=== PATIENT | female | born 1930 | race Caucasian/White ===

== ENCOUNTER 2017-02-04 00:32 | Inpatient (IN) | payer OTHER ==
--- NOTE | ~2017-02-04 | HP ---
History And Physical [address] [place]. [address] NAME: DARIN COOK : 31 STATUS : ADM Anjali PAT#: [id number] AGE: 86 ADM/REG DATE : 02/04/17 MR#: [id number] REPORT SERV DATE: 02/04/17 DICTATED BY: RICARDA CELESTIN DATE: 02/04/17 REPORT STATUS : Draft TRANSCRIBED BY: MODL DATE: 02/04/17 DATE OF ADMISSION: 02/04/2017 CHIEF COMPLAINT: An 86-year-old female presenting with right-sided thoracic shingles and failure to thrive. HISTORY OF PRESENT ILLNESS: The patient's history was obtained through the interview with patient and two sons coupled with review of [facility] and [facility] medical records. The patient about nine days ago began to develop an odd discomfort under her right breast radiating around to her back. It has been in the last two days that she has developed an overt rash that seems to be consistent with shingles on a dermatome extending underneath her right breast all the way to her back at midline. It has been blistering by her own account and is about 8/10 severity discomfort at all times. It is in this context that the patient has had a decreased appetite and just "felt really really sick." On the night prior to admission, she had a fall because she was feeling dizzy, orthostatic. She has had nausea, but no vomiting. She has had subjective fevers and chills. In the last 24 hours, she has developed a headache that radiates into her right ear and her right yazdanism, an aching quality, 10/10 severity. She has no previous history of diabetes. REVIEW OF SYSTEMS: Otherwise, a 14-point review of systems was obtained and was negative. PAST MEDICAL HISTORY: 1. Restless legs syndrome. 2. Depression. 3. Obstructive sleep apnea, but noncompliant with CPAP. 4. Hypertension. 5. Atrial fibrillation. 6. Pancreatitis. 7. Hypothyroidism. 8. Gastroesophageal reflux disorder. 9. Colon polyps seen by Dr. Espinosa. PAST SURGICAL HISTORY: 1. Bilateral hip replacement. 2. Cholecystectomy. 3. Hysterectomy with oophorectomy. 4. Cystocele repair. History And Physical [address] [place]. [address] NAME: DARIN COOK : 31 STATUS : ADM Anjali PAT#: [id number] AGE: 86 ADM/REG DATE : 02/04/17 MR#: [id number] REPORT SERV DATE: 02/04/17 DICTATED BY: RICARDA CELESTIN DATE: 02/04/17 REPORT STATUS : Draft TRANSCRIBED BY: GUSTAVO DATE: 02/04/17 ALLERGIES: LORTAB. SOCIAL HISTORY: No tobacco abuse. No alcohol abuse. She is a . Lives in [place], [place]. Lives with son. FAMILY HISTORY: Heart disease, diabetes. CURRENT MEDICATIONS: Include Flexeril t.i.d., Prozac 20 mg p.o. daily, Lasix 10 mg as needed, Cozaar 100 mg p.o. daily, metoprolol-XL 50 mg p.o. daily, nabumetone 750 mg p.o. b.i.d., Mirapex mg p.o. at bedtime. PHYSICAL EXAMINATION: VITAL SIGNS: Temperature 97.9, pulse 87, blood pressure 125/73, respiratory rate 16, and O2 saturation 95% on room air. GENERAL: An ill-appearing female, describing distress from her pain related to headache and shingles. HEENT: Pupils equal, round, and reactive to light. No conjunctival pallor. No scleral icterus. Nares are patent. Oropharynx is clear of obstruction. Dry mucous membranes. The patient's right ear shows extensive amount of wax, but no blistering effect or other erythema or abnormality. NECK: Trachea midline. No thyromegaly. LYMPH: No cervical lymphadenopathy. No supraclavicular lymphadenopathy. RESPIRATORY: Clear to auscultation at bases. No wheezes, rales, or rhonchi. Normal respiratory effort. CARDIOVASCULAR: Regular rate and rhythm. No murmurs, rubs, or gallops. No extremity edema is appreciated. ABDOMEN: Soft, nontender, nondistended. Normal bowel sounds auscultated throughout. No hepatosplenomegaly. DERMATOLOGICAL: Warm and dry extremities. No pallor. No cyanosis. The patient has a typical appearing case of shingles extending on the dermatome linearly from under her right breast around to the back, but with no ulcerations. No purulent drainage. No heat. PSYCHIATRIC: Normal affect. Good mood. Alert and oriented x3. LABORATORY DATA: White blood cell count 7.9, hematocrit 48, platelets 212. Sodium 131, potassium 3.7, chloride 97, bicarb 27, BUN 12, creatinine 1.1, glucose 207. Urinalysis shows no evidence of infection, but 57 hyaline casts. INR 1.1. STUDIES: 1. EKG by my own evaluation shows sinus rhythm, premature ventricular contractions, left axis deviation, anterior septal infarct changes. 2. CT scan of the brain without contrast shows no acute intracranial process. ASSESSMENT AND PLAN: 1. Shingles. Place on IV narcotic pain management and started valacyclovir. Obtain a wound care consult to see if there is any way to relieve discomfort and to prevent secondary infection or complications. 2. Headache. Negative CT scan of the brain. Check ESR. History And Physical [address] [address] NAME: DRAIN COOK : 31 STATUS : ADM Anjali PAT#: [id number] AGE: 86 ADM/REG DATE : 02/04/17 MR#: [id number] REPORT SERV DATE: 02/04/17 DICTATED BY: RICARDA CELESTIN DATE: 02/04/17 REPORT STATUS : Draft TRANSCRIBED BY: GUSTAVO DATE: 02/04/17 3. Hyperglycemia. Check hemoglobin A1c. Place on sliding scale insulin. Obtain a nurse educator consult. 4. [address] on IV fluids. KPL/MODL Ricarda Celestin M.D. / [id number] CC: Chel Pryor M.D.
--- NOTE | ~2017-02-04 | EEG ---
Electroencephalogram [facility] [address] [place]. [address] NAME: DARIN COOK : 31 STATUS : ADM Anjali PAT#: [id number] AGE: 86 ADM/REG DATE : 02/04/17 MR#: [id number] REPORT SERV DATE: 02/06/17 DICTATED BY: MELY BACH DATE: 02/06/17 REPORT STATUS : Draft TRANSCRIBED BY: MODL DATE: 02/06/17 INTERPRETING PHYSICIAN: Mely Bach MD-Neurology. EEG NUMBER: [id number]. AGE: 86. REASON FOR EEG: Lethargy, altered mental status, meningitis. 23 surface electrodes, 10-20 international placement was used. The patient was noted to be awake, drowsy, and confused throughout the study. The patient kept her eyes open through most of the recording. The background activity consisted of very poorly organized 5-6 cycles per second, located in the posterior head regions. This activity did not appear to attenuate with the eye opening maneuvers. Eye blinking artifact was symmetrical. No paroxysmal or epileptiform activity was seen during this study. There was no significant asymmetry. The patient's registered public surveyor showed sinus rhythm of 72 beats per minute with intermittent PVCs followed by pauses of 0.5 seconds. IMPRESSION: ABNORMAL EEG CHARACTERIZED BY PRESENCE OF DIFFUSE SLOWING AND DISORGANIZATION OF CEREBRAL ACTIVITY. ABOVE PATTERN MAY REPRESENT PRESENCE OF DIFFUSE CEREBRAL DYSFUNCTION. HOWEVER, MAY ALSO BE SEEN IN A POSTICTAL STATE. CLINICAL CORRELATION IS RECOMMENDED. BRIGETTE/GUSTAVO Mely Bach MD / [id number] CC: Akash Rios M.D. Duy Wilson M.D.
--- NOTE | ~2017-02-04 | CN ---
Consultation Report [facility] [address] [place]. [address] NAME: DARIN COOK : 31 STATUS : ADM IN PAT#: [id number] AGE: 86 ADM/REG DATE : 02/04/17 MR#: [id number] REPORT SERV DATE: 02/08/17 DICTATED BY: JUANIS AMAYA DATE: 02/08/17 REPORT STATUS : Draft TRANSCRIBED BY: MODL DATE: 02/08/17 INFECTIOUS DISEASE CONSULTATION DATE OF CONSULTATION: 02/08/2017 REASON FOR CONSULTATION: Zoster with meningitis. HISTORY OF PRESENT ILLNESS: This is an 86-year-old female with a past medical history notable for hypertension, obstructive sleep apnea, depression, restless legs syndrome, hypothyroidism, and gastroesophageal reflux. She was admitted to the hospital on February 04 with Zoster involving her right chest wall but also symptoms of dizziness, falls, and headache. She underwent a CT scan of the brain without IV contrast without any significant findings. She underwent a lumbar puncture which showed 34 white blood cells, all mononuclear and protein of 114. She developed some worsening mental status changes and it was elected to start her on IV acyclovir. She also was given Valtrex and received both drugs from February 04 through the morning of February 06. The patient had some worsening initially of her mental status and was seen by Neurology. EEG showed no signs of seizures. She then started improving again over the past couple of days and now is markedly improved. She denies any more headache. She denies significant pain in the area of the Zoster on the right chest wall. PAST MEDICAL HISTORY: As outlined above, otherwise, notable for bilateral hip replacements; cholecystectomy; hysterectomy with oophorectomy; and cystocele repair. ALLERGIES: HYDROCODONE AND LORTAB. PRESENT MEDICATIONS: In addition to IV acyclovir include Lovenox; Prozac; Neurontin; insulin sliding scale; Cozaar; and Toprol-XL. SOCIAL HISTORY: She lives with her son who is here in the room with her. Nonsmoker. Nondrinker. . FAMILY HISTORY: Noncontributory. REVIEW OF SYSTEMS: Otherwise negative. No nausea, vomiting, diarrhea, chest pain, or shortness of breath. PHYSICAL EXAMINATION: VITAL SIGNS: The patient weighs 93 kg. She is afebrile. Blood pressure 147/91, pulse 70, and respiratory rate 16. GENERAL: She is alert, pleasant, conversational, appropriate. HEENT: Head and neck exam, extraocular movements intact. The oral cavity is clear. NECK: Neck is supple. No adenopathy. No meningismus. LUNGS: Clear to auscultation anteriorly. Cardiac: Exam regular rate and rhythm without Consultation Report [facility] [address] [place] [address] NAME: DARIN COOK : 31 STATUS : ADM IN PAT#: [id number] AGE: 86 ADM/REG DATE : 02/04/17 MR#: [id number] REPORT SERV DATE: 02/08/17 DICTATED BY: JUANIS AMAYA DATE: 02/08/17 REPORT STATUS : Draft TRANSCRIBED BY: GUSTAVO DATE: 02/08/17 murmur, gallop, or rub. ABDOMEN: Soft and nontender. Bowel sounds are present. EXTREMITIES: No significant rash or edema. She has a peripheral IV without phlebitis. CHEST: Exam shows a typical dermatomal Zoster, a rash. There are a few shallow ulcerations most of this now appears to be healing. LABORATORY STUDIES: White blood cell count on February 05 7.0, hemoglobin 14.0, platelets 190, creatinine 1.41, repeat creatinine today is down to 0.91. Admission liver function tests showed a bilirubin of 1.3, otherwise normal. Albumin was 4.4. Admission urinalysis trace leukocyte esterase, 30 mg/dL of protein. Lumbar puncture as noted. IMPRESSION: This patient has dermatomal zoster accompanied by a component of meningitis. She may have had an element of meningeal encephalitis. However the patient's worsening mental status after being started on the acyclovir could have been due to a number of factors. She did have some pain medication. She was sleeping poorly and she could have had some mild neurotoxicity from the concomitant Valtrex and IV acyclovir. I do not believe she had a severe zoster encephalitis here. PLAN: We will change the antiviral therapy back to oral Valtrex tomorrow for 5 more days of therapy. MARTHA/GUSTAVO Juanis Amaya M.D. / [id number] CC: Chel Pryor M.D.
--- NOTE | ~2017-02-04 | CN ---
Consultation Report [facility] [address] [place]. [address] NAME: DARIN COOK : 31 STATUS : ADM Anjali PAT#: [id number] AGE: 86 ADM/REG DATE : 02/04/17 MR#: [id number] REPORT SERV DATE: 02/05/17 DICTATED BY: MELY BACH DATE: 02/05/17 REPORT STATUS : Draft TRANSCRIBED BY: MODL DATE: 02/05/17 NEUROLOGICAL EVALUATION-CONSULTATION DATE OF CONSULTATION: 02/05/2017 HISTORY OF PRESENT ILLNESS: This is an 86-year-old white female who was admitted on 02/04/2017 with altered mental status, encephalopathy. The patient was not able to provide history. History was obtained from the patient's medical records, which was obtained from the patient's son. The patient developed shingles eruption under her right breast approximately seven days ago prior to admission. At that time, the patient had pain in her right chest area, radiating to her neck. The patient was not able to function well, had decreased appetite and decreased p.o. liquid intake. The night prior to admission, she had fallen because she was feeling dizzy, she struck her head. Apparently, the patient had nausea but no vomiting. There was no report of fever, chills, nausea, or vomiting. The day prior to admission, the patient developed a headache, which radiated to the right ear and her right catholic, which was described as severe. PAST MEDICAL HISTORY: Significant for history of hypertension; atrial fibrillation; pancreatitis; hypothyroidism; obstructive sleep apnea, noncompliant with CPAP; depression; restless legs syndrome; colon polyp; GI reflux; and hypothyroidism. PAST SURGICAL HISTORY: Includes hysterectomy, cholecystectomy, bilateral hip replacement, and cystocele repair. SOCIAL HISTORY: There is no history of smoking or alcohol use. She lives with her son. FAMILY HISTORY: Significant for history of diabetes and heart disease. MEDICATIONS: Prior to admission included Cozaar 100 mg daily, metoprolol 50 mg daily, Lasix 10 mg a day, Flexeril 10 mg t.i.d., nabumetone 750 mg p.o. b.i.d., and Mirapex unknown dose. The patient had undergone lumbar puncture to rule out meningitis. The patient's CSF showed 34 Wbc's, 188 Rbc's, 37 lymphocytes, 63 monos, protein was 114.2, and glucose was 91. Her peripheral glucose was 116. Peripheral CBC showed WBC count of 7, hemoglobin and hematocrit were 14/40, and platelet count 140,000, with a normal differential. This morning, the patient was difficult to arouse. Last night, the patient was given Dilaudid for complaints of headache and chest pain secondary to her shingles. The patient was difficult to arouse today and neurological examination was requested. The patient appeared arousable, however, did not follow commands. PHYSICAL EXAMINATION: GENERAL: Showed blood pressure of 140/65, pulse was 85 and regular, respirations 20, and Consultation Report [address] [place]. [address] NAME: DARIN COOK : 31 STATUS : ADM Anjali PAT#: [id number] AGE: 86 ADM/REG DATE : 02/04/17 MR#: [id number] REPORT SERV DATE: 02/05/17 DICTATED BY: MELY BACH DATE: 02/05/17 REPORT STATUS : Draft TRANSCRIBED BY: GUSTAVO DATE: 02/05/17 temperature was 97.8. HEAD AND NECK: Showed no evidence of trauma. Auscultation of the neck showed no evidence of bruits. Thyroid gland was nonpalpable. There was no cervical lymphadenopathy. No herpetic eruption was noted around the ears, mouth, or neck area, but the patient had subacute lesions under her right breast in the proximal T6 dermatome on the right. ABDOMEN: Soft, nontender. There was no organomegaly. Bowel sounds are present. EXTREMITIES: Show no clubbing or cyanosis. There was no peripheral edema. Peripheral pulses were normal. Skin was dry. Mucous membranes dry. NEUROLOGICAL: The patient was alert but did not follow commands. Appeared to fall asleep readily. Her speech was dysarthric. There was no evidence of aphasia. Cranial nerve examination 2 through 12 appeared to be nonfocal. No abnormalities detected; however, visual carvalho were difficult to test secondary to the patient's confusion. Motor exam showed no deficit. The patient moved her extremities symmetrically and no deficits were noted. Sensory exam: The patient withdrew to pain symmetrically. Cerebellar exam could not be tested. The patient, however, did not display truncal ataxia or nystagmus on exam. Gait could not be tested. DATA: EEG was monitored at the patient's bedside. It showed no evidence of seizure activity, diffusely slow background was noted. Possible encephalopathy versus postictal state. CT scan of the head showed no evidence of acute abnormality. Moderate amount of ischemic changes in deep white matter was present, and mild atrophy was observed. No subdural or epidural fluid collection was noted; however, the patient did have prominent frontal atrophy. IMPRESSION: Recent changes in neurological status and mental status-encephalopathy with signs of mild viral meningitis, recent herpes zoster infection peripheral in the T6 dermatome. The patient had an episode of poor responsiveness, which may represent possible subclinical seizure. No focal motor deficits were noted on the examination; however, the patient's confusion is definitely a new finding for this patient. As per history, there is no suggestion of the patient having significant dementia or past history of strokes. Although unlikely herpes zoster meningitis, encephalitis can be considered. Although most described cases of herpes encephalitis are more severe including causing vasculitis and strokes, the patient's symptoms appeared mild. This may constitute a mild herpes zoster meningitis. We will await the patient's herpes zoster PCR on the cerebrospinal fluid. Would consider continuing acyclovir, monitoring the patient for fall precautions and injury, and avoid sedating medications or narcotic medications if possible. We will start Neurontin for postherpetic pain. Lyrica, although approved for this condition, would be too sedating for this patient. At present, no indication is seen to start anticonvulsant medications; however, if the patient has any evidence of clinical seizure, we would start the patient on Keppra 500 mg or 1000 mg IV q.12 hours. Monitor renal function. We will follow the patient with you. Thank you for allowing us to participate in this patient's care. RKA/JUWANL Consultation Report [place] [id number] [facility] [place]. [address] NAME: DARIN COOK : 31 STATUS : ADM Anjali PAT#: [id number] AGE: 86 ADM/REG DATE : 02/04/17 MR#: [id number] REPORT SERV DATE: 02/05/17 DICTATED BY: MELY BACH DATE: 02/05/17 REPORT STATUS : Draft TRANSCRIBED BY: GUSTAVO DATE: 02/05/17 Mely Bach MD / [id number] CC: Chel Pryor M.D.
--- NOTE | ~2017-02-04 | IDS ---
Interim Discharge Summary [facility] [address] [place]. [address] NAME: DARIN COOK : 31 STATUS : ADM IN [facility]#: [id number] AGE: 86 ADM/REG DATE : 02/04/17 MR#: [id number] REPORT SERV DATE: 02/08/17 DICTATED BY: ELODIA SENIOR DATE: 02/08/17 REPORT STATUS : Draft TRANSCRIBED BY: MODL DATE: 02/08/17 ADMISSION DATE: 02/04/2017 DISCHARGE DATE: DATE OF SUMMARY: 02/08/2017. 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 SECONDARY DIAGNOSES: 1. Encephalopathy with possible seizure and postictal state. 2. Hypertension. 3. Acute renal insufficiency due to hypovolemia. 4. Transient hyperglycemia. HISTORY OF PRESENT ILLNESS: Please see Dr. Burrows's dictation, 02/04/2017. HOSPITAL COURSE: Admitted with acute complaint of headache and shingles of five days' duration. Upon seeing her, however, I was concerned about the presence of meningismus. She was changed to intravenous acyclovir therapy and an LP was performed on 02/07/2017, which in fact was positive for lymphocytes and monocytes, but no neutrophils or high protein, but normal glucose consistent with aseptic meningitis. The patient actually had a deterioration level of consciousness during the first 36 hours of her hospitalization. There was actually an episode of comatose state. There was a concern about unwitnessed seizure, EEG showed diffuse slowing, no ictal spikes; however, the patient did gradually improve her cognition. In fact, by 02/07/2017, she was headache free and by 02/08/2017, she had normal mental status, normal p.o. intake. She remained on intravenous acyclovir. I consulted with Dr. Charlie Amaya regarding duration of intravenous acyclovir versus conversion to p.o. therapy, should also initiate physical therapy today with possible half-way facility if intravenous antivirals were required. We anticipated that she would be ready for discharge regardless within the next day or two. Dr. Avila will presume care of this patient tomorrow. BLACK/GUSTAVO Elodia Senior M.D. / [id number] CC: Chel Pryor M.D.
--- NOTE | ~2017-02-04 | DS ---
Discharge Summary [facility] [address] [place]. [address] NAME: DARIN COOK : 31 STATUS : DIS IN PAT#: [id number] AGE: 86 ADM/REG DATE : 02/04/17 MR#: [id number] REPORT SERV DATE: 02/11/17 DICTATED BY: FLOR DIEHL DATE: 02/10/17 REPORT STATUS : Draft TRANSCRIBED BY: MODL DATE: 02/10/17 ADMISSION DATE: 02/04/2017 DISCHARGE DATE: 02/10/2017 HOSPITAL COURSE: An 86-year-old very pleasant female with known history of hypertension, JUAN, depression, restless legs syndrome, hypothyroidism, and GERD. Came in with zoster right chest wall, dizziness, falls, headache. CT of the brain did not show any acute pathology. Had an LP given some meningismus signs, which only showed 34 white blood cells, all mononuclear; protein 114. She had worsening mental status changes. As a result, initially she was started on IV acyclovir, then was concomitantly given Valtrex from 02/04/2017 through 02/06/2017. The patient had worsening of mental status, was initially evaluated as well with Neurology with concern for possible seizure. An EEG did not show a seizure. When she was stopped on her acyclovir from 02/06/2017, she started to improve mentally speaking, known to have dermatomal zoster component of meningitis likely viral element of meningoencephalitis; however, the patient has worsen mental status after being started on acyclovir and concomitant Valtrex. Could be mild neurotoxicity from both medications. Dr. Amaya had evaluated her, did not believe she had any severe zoster encephalitis. p.o. b.i.d. through 02/14/2017. Also, avoid sedating medications and narcotics. She was started on Neurontin for postherpetic neuralgia. Lyrica was entertained, but was thought to have been too sedating as well as the Keppra that she was also on initially. The patient is amenable for discharge. DISCHARGE MEDICATIONS: To a facility will include Prozac 20 p.o. daily; gabapentin 300 p.o. t.i.d., we will try to reduce that down as an outpatient; losartan 100 p.o. daily; Toprol-XL 50 p.o. daily; Valtrex 1 g p.o. b.i.d. through 02/13/2017; Percocet 5/325 p.o. q.8 p.r.n. pain, we will try to reduce that down as an outpatient as well; Flexeril as well p.r.n., Flexeril will actually not be given, given potential sedating synergistic effect; Mirapex p.r.n. at night. FOLLOWUP: PCP in two weeks including possible maintenance acyclovir at that time. DISCHARGE DIAGNOSES: The patient does have diabetes. A1c is 7.4. As a result, I will place this patient on metformin 500 p.o. b.i.d. She needs to have weight loss therapy as well, as that may indeed reverse her diabetes. 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 DAVID, improved. Postherpetic neuralgia. See rest of my orders. All questions were answered. Took well over 30 minutes to do. CONSULT: Infectious Disease and Neurology. DICTATED BY: Flor Diehl DO WST/GUSTAVO Discharge Summary [address] [address] NAME: DARIN COOK : 31 STATUS : DIS IN PAT#: [id number] AGE: 86 ADM/REG DATE : 02/04/17 MR#: [id number] REPORT SERV DATE: 02/11/17 DICTATED BY: FLOR DIEHL DATE: 02/10/17 REPORT STATUS : Draft TRANSCRIBED BY: MODL DATE: 02/10/17 Flor Diehl DO / [id number] CC: DO Duy Ordonez M.D.
[~2017-02-04 00:32] MED LIST: AMIT100 PO; ASAB PO; DSS PO; EXFORGE; EXFORGE1 TA1 PO; FLEX PO; FLUID PILL; L20 PO; LIPITOR40 PO; MIRAPEX250 PO; PROZAC PO; PROZAC40 MG PO; STOOL SOFTEN100 MG PO; SYN125 PO; SYNTHROID137 MCG PO; TOPXL25 PO; TOPXL50 PO; XARELTO20 MG PO
[2017-02-04 01:57] LABS: BASOPHILS 0.3 %; BASOPHILS ABSOLUTE 0.02 10/3/uL (0.0-0.16); EOSINOPHILS 0.3 %; EOSINOPHILS ABSOLUTE 0.02 10/3/uL (0.0-0.53); ER CBC TAT 0 Hrs 03 Mins; HEMOGLOBIN 16.6 g/dL (12.0-16.0); IMMATURE GRANULOCYTES 0.3 %; IMMATURE GRANULOCYTES ABSOLUTE 0.02 10/3/uL (0.0-0.11); LYMPHOCYTES 20.8 %; LYMPHOCYTES ABSOLUTE 1.65 10/3/uL (0.67-4.30); MEAN CORPUS HGB CONC 34.8 g/dL (32.0-36.0); MEAN CORPUSCULAR HEMOGLOB 31.5 pg (26.0-34.0); MEAN CORPUSCULAR VOLUME 90.5 fL (80-100); MONOCYTES 13.4 %; MONOCYTES ABSOLUTE 1.06 10/3/uL (0.21-1.20); NEUTROPHILS 64.9 %; NEUTROPHILS ABSOLUTE 5.15 10/3/uL (2.02-8.40); PLATELET COUNT 212 10/3/uL (150-400); RED CELL COUNT 5.27 10/6/uL (4.0-5.6); WHITE BLOOD CELLS 7.9 10/3/uL (4.5-10.5)
[2017-02-04 01:58] LABS: HEMATOCRIT 47.7 % (36.0-48.0); MANUAL DIFF NO %
[2017-02-04 02:13] LABS: ALBUMIN 4.4 G/DL (3.5-5.0); CALCIUM, SERUM 9.8 MG/DL (8.5-10.4); CHLORIDE, SERUM 97 MMOL/L (96-112); CO2 (CARBON DIOXIDE) 27 MMOL/L (24-34); CREATININE 1.11 MG/DL (0.55-1.02); DIRECT BILIRUBIN 0.2 MG/DL (0.0-0.4); GFR AFRICAN AMERICAN 52 ML/MIN (>=60); GFR NON AFRICAN AMERICAN 45 ML/MIN (>=60); INDIRECT BILIRUBIN(NOT ORDER) 1.1 MG/DL (0.1-0.9); POTASSIUM, SERUM 3.7 MMOL/L (3.5-5.3); SGOT(AST) 26 U/L (5-40); SGPT(ALT) 26 U/L (5-65); TOTAL BILIRUBIN 1.3 MG/DL (0-1.2); TOTAL PROTEIN 8.4 G/DL (6.0-8.5)
[2017-02-04 02:22] LABS: A/G RATIO 1.1 (0.7-1.9); ALKALINE PHOSPHATASE 107 U/L (45-117); BUN (BLOOD UREA NITROGEN) 12 MG/DL (6-23); GLUCOSE, SERUM 207 MG/DL (60-99); SODIUM, SERUM 131 MMOL/L (135-148)
[2017-02-04 03:07] LABS: INTERNATIONAL NORMAL RATI 1.1 UNITS (-); PARTIAL THROMBO TIME 24.6 SEC (22.5-37.2); PROTIME (NOT ORD) 13.6 SEC (12.0-14.5)
[2017-02-04 03:30] LABS: ASCORBIC ACID (UR NOT ORDER) NEG (NEG); BILIRUBIN, URINE NEGATIVE (NEG); ER URINALYSIS TAT 0 Hrs 08 Mins; KETONE, URINE 20 MG/DL (NEG); LEUKOCYTE ESTERASE(NOT OR TRACE (NEG); NITRITE (URINE) NEG (NEG); WBC (NOT ORDERED) (RFLEX) 1 (0-5)
[2017-02-04] MEDS ORDERED: NABUMETONE750 MG PO (04:15)
[2017-02-04] MEDS ORDERED: TOPXL50 PO (04:16)
[2017-02-04] MEDS ORDERED: L20 PO (04:18)
[2017-02-04] MEDS ORDERED: COZAAR100 MG PO (04:19)
[2017-02-04] MEDS ORDERED: MIRAPEX250 PO (04:21)
[2017-02-04] MEDS ORDERED: PROZAC PO (04:22)
[2017-02-04] MEDS ORDERED: FLEX PO (04:23)
[2017-02-04 18:19] LABS: TOTAL PROTEIN, CSF 114.2 MG/DL (15-45)
[2017-02-04 21:13] LABS: CSF BASO 0 % (NO REF RANGE); CSF COLOR (NOT ORD) COLORLESS (COLORLESS); CSF EOS 0 % (0-1); CSF LYMPH (NOT ORD) 37 % (28-96); CSF MONO 63 % (16-56); CSF RBC (NOT ORD) 188 MM3 (NO REFERENCE); CSF SEGS (NOT ORD) 0 % (0-7); CSF WBC (NOT ORD) 34 /uL (0-10); CSF XANTHROCHROMIA NEG (NEG)
[2017-02-04 21:14] LABS: CSF APPEARANCE (NOT ORD) CLEAR (CLEAR)
[2017-02-05 06:48] LABS: BASOPHILS 0.3 %; BASOPHILS ABSOLUTE 0.02 10/3/uL (0.0-0.16); EOSINOPHILS 2.6 %; EOSINOPHILS ABSOLUTE 0.18 10/3/uL (0.0-0.53); HEMATOCRIT 40.4 % (36.0-48.0); IMMATURE GRANULOCYTES 0.1 %; IMMATURE GRANULOCYTES ABSOLUTE 0.01 10/3/uL (0.0-0.11); LYMPHOCYTES 25.7 %; LYMPHOCYTES ABSOLUTE 1.81 10/3/uL (0.67-4.30); MEAN CORPUS HGB CONC 34.7 g/dL (32.0-36.0); MEAN CORPUSCULAR HEMOGLOB 31.4 pg (26.0-34.0); MEAN CORPUSCULAR VOLUME 90.6 fL (80-100); MEAN PLATELET VOLUME 9.6 fL (9.2-13.0); MONOCYTES 12.4 %; MONOCYTES ABSOLUTE 0.87 10/3/uL (0.21-1.20); NEUTROPHILS 58.9 %; NEUTROPHILS ABSOLUTE 4.14 10/3/uL (2.02-8.40); PLATELET COUNT 190 10/3/uL (150-400); RBC DISTRIBUTION WIDTH 12.9 % (12.0-16.0); RED CELL COUNT 4.46 10/6/uL (4.0-5.6)
[2017-02-05 06:49] LABS: MANUAL DIFF NO %
[2017-02-05 07:02] LABS: CHLORIDE, SERUM 102 MMOL/L (96-112); CO2 (CARBON DIOXIDE) 25 MMOL/L (24-34); CREATININE 1.41 MG/DL (0.55-1.02); GFR AFRICAN AMERICAN 39 ML/MIN (>=60); GFR NON AFRICAN AMERICAN 34 ML/MIN (>=60); POTASSIUM, SERUM 4.1 MMOL/L (3.5-5.3); SODIUM, SERUM 133 MMOL/L (135-148)
[2017-02-05 07:09] LABS: BUN (BLOOD UREA NITROGEN) 21 MG/DL (6-23); CALCIUM, SERUM 8.4 MG/DL (8.5-10.4); GLUCOSE, SERUM 149 MG/DL (60-99)
[2017-02-05 12:11] LABS: ALLENS TEST Pos; BE (BASE EXCESS) -6.8 MEQ/L (0 +/- 2.5); CARBOXYHEMOGLOBIN 1.7 % (0-3); HCO3 (ACTUAL BICARBONATE) 19.6 MEQ/L (23-27); HEMOBLOGIN CONTENT 13.3 G/DL (12-16); INSTRUMENT SERIAL # 8083; METHEMOGLOBIN 0.2 % (0-3); O2 CONTENT 17.3 VOL% (18-24); OPERATOR ID 13624; PCO2 (CO2 TENSION) 42 MMHG (35-45); PO2 (O2 TENSION) 77 MMHG (79-93); SAMPLE Arterial; pH 7.28 (7.37-7.43)
[2017-02-06 06:47] LABS: CALCIUM, SERUM 8.6 MG/DL (8.5-10.4); CHLORIDE, SERUM 109 MMOL/L (96-112); CO2 (CARBON DIOXIDE) 21 MMOL/L (24-34); CREATININE 0.93 MG/DL (0.55-1.02); GFR AFRICAN AMERICAN 65 ML/MIN (>=60); GFR NON AFRICAN AMERICAN 56 ML/MIN (>=60); GLUCOSE, SERUM 140 MG/DL (60-99); PHOSPHORUS, SERUM 2.2 MG/DL (2.5-4.5); POTASSIUM, SERUM 3.7 MMOL/L (3.5-5.3)
[2017-02-06 06:48] LABS: BUN (BLOOD UREA NITROGEN) 15 MG/DL (6-23); SODIUM, SERUM 140 MMOL/L (135-148)
[2017-02-07 04:43] LABS: CALCIUM, SERUM 9.3 MG/DL (8.5-10.4); CHLORIDE, SERUM 106 MMOL/L (96-112); CO2 (CARBON DIOXIDE) 21 MMOL/L (24-34); GFR AFRICAN AMERICAN 78 ML/MIN (>=60); GFR NON AFRICAN AMERICAN 67 ML/MIN (>=60); GLUCOSE, SERUM 158 MG/DL (60-99); POTASSIUM, SERUM 3.4 MMOL/L (3.5-5.3); SODIUM, SERUM 140 MMOL/L (135-148)
[2017-02-07 04:44] LABS: BUN (BLOOD UREA NITROGEN) 11 MG/DL (6-23)
[2017-02-08 05:08] LABS: BUN (BLOOD UREA NITROGEN) 11 MG/DL (6-23); CALCIUM, SERUM 9.6 MG/DL (8.5-10.4); CHLORIDE, SERUM 104 MMOL/L (96-112); CO2 (CARBON DIOXIDE) 26 MMOL/L (24-34); CREATININE 0.91 MG/DL (0.55-1.02); GFR AFRICAN AMERICAN 67 ML/MIN (>=60); GFR NON AFRICAN AMERICAN 58 ML/MIN (>=60); GLUCOSE, SERUM 159 MG/DL (60-99); POTASSIUM, SERUM 4.1 MMOL/L (3.5-5.3); SODIUM, SERUM 137 MMOL/L (135-148)
[2017-02-08 14:41] LABS: HSV DNA TYPE 1 Not Detected (NOTDET); HSV DNA TYPE 2 Not Detected (NOTDET)
[2017-02-10 06:36] LABS: BASOPHILS 0.2 %; BASOPHILS ABSOLUTE 0.02 10/3/uL (0.0-0.16); EOSINOPHILS 2.5 %; EOSINOPHILS ABSOLUTE 0.22 10/3/uL (0.0-0.53); HEMATOCRIT 41.7 % (36.0-48.0); IMMATURE GRANULOCYTES 0.5 %; IMMATURE GRANULOCYTES ABSOLUTE 0.04 10/3/uL (0.0-0.11); LYMPHOCYTES 23.5 %; LYMPHOCYTES ABSOLUTE 2.07 10/3/uL (0.67-4.30); MANUAL DIFF NO %; MEAN CORPUS HGB CONC 33.6 g/dL (32.0-36.0); MEAN CORPUSCULAR VOLUME 92.3 fL (80-100); MONOCYTES 9.8 %; MONOCYTES ABSOLUTE 0.86 10/3/uL (0.21-1.20); NEUTROPHILS 63.5 %; NEUTROPHILS ABSOLUTE 5.59 10/3/uL (2.02-8.40); PLATELET COUNT 214 10/3/uL (150-400); RBC DISTRIBUTION WIDTH 13.8 % (12.0-16.0); RED CELL COUNT 4.52 10/6/uL (4.0-5.6); WHITE BLOOD CELLS 8.8 10/3/uL (4.5-10.5)
[2017-02-10 06:59] LABS: BUN (BLOOD UREA NITROGEN) 13 MG/DL (6-23); CALCIUM, SERUM 9.8 MG/DL (8.5-10.4); CHLORIDE, SERUM 102 MMOL/L (96-112); CO2 (CARBON DIOXIDE) 26 MMOL/L (24-34); CREATININE 0.91 MG/DL (0.55-1.02); GFR AFRICAN AMERICAN 67 ML/MIN (>=60); GFR NON AFRICAN AMERICAN 58 ML/MIN (>=60); GLUCOSE, SERUM 171 MG/DL (60-99); PHOSPHORUS, SERUM 2.9 MG/DL (2.5-4.5); POTASSIUM, SERUM 4.4 MMOL/L (3.5-5.3); SODIUM, SERUM 136 MMOL/L (135-148)
== END 2017-02-10 18:52 | DRG 73 ==
LOC: ER 00:32 → 4SO 06:40
PROVIDERS: Internal Medicine; Nurse Practitioner
PROC: B01BZZZ Fluoroscopy of Spinal Cord (ICD-10-PCS; principal; 2017-02-04)
PROC: 009U3ZX Drainage of Spinal Canal, Percutaneous Approach, Diagnostic (ICD-10-PCS; principal; 2017-02-04)
DX: B02.0 Zoster encephalitis (principal); G93.49 Other encephalopathy; R40.20 Unspecified coma; N17.9 Acute kidney failure, unspecified; E86.0 Dehydration; I48.2 Chronic atrial fibrillation; E11.65 Type 2 diabetes mellitus with hyperglycemia; I10 Essential (primary) hypertension; Z99.81 Dependence on supplemental oxygen; B02.1 Zoster meningitis; R62.7 Adult failure to thrive; F32.9 Major depressive disorder, single episode, unspecified; E03.9 Hypothyroidism, unspecified; I95.1 Orthostatic hypotension; G25.81 Restless legs syndrome; G47.33 Obstructive sleep apnea (adult) (pediatric); K21.9 Gastro-esophageal reflux disease without esophagitis; Z86.010 Personal history of colon polyps; Z98.890 Other specified postprocedural states; Z96.643 Presence of artificial hip joint, bilateral; Z88.5 Allergy status to narcotic agent; E86.1 Hypovolemia; B02.29 Other postherpetic nervous system involvement
CPT/HCPCS: 36600; 62270; 70450; 71010; 77003; 80048; 80053; 81001; 82248; 82805; 82945; 82962; 83036; 83735; 84100; 84132; 84146; 84157; 85025; 85610; 85652; 85730; 87070; 87205; 87529; 87529-59; 89051; 93005; 95816; 95819; 96374; 96375; 96376; 97110-GP; 97161-GP; 99285; A9270-GY; J0133; J0360; J1170; J1885; J2720; J2765; J3480